=== PATIENT | male | born 1950 | race Caucasian/White ===

== ENCOUNTER 2018-01-15 13:31 | Day surgery (SDC) | payer OTHER ==
[2018-01-15 12:04] VITALS: BMI 31.3
[2018-01-15] MEDS ORDERED: PROPOFOL 20 ML ONE ×2 (14:41)
[2018-01-15] MEDS ORDERED: LIDOCAINE HCL/PF 2% SDV 5ML VIAL ONE (14:41)
[2018-01-15 15:12] VITALS: TEMP 98.4
[2018-01-15 17:13] VITALS: BP 152/82; PULSE 65
--- NOTE | 2018-01-17 14:46 | PATH ---
Surgical Pathology Report Patient Name: [facility]. Rec. #: [id number] /Age/Gender: 1950 (Age: 67) / M Account: [id number] Location: [facility]-ENDOSCOPY Taken: 01/15/2018 Received: 01/16/2018 Reported: 01/17/2018 Physicians: Bharat Aranda M.D. Specimen(s) Received BX MID SIGMOID POLYP Clinical History Positive cologuard Postoperative diagnosis: Mild diverticulosis, polyp Final Diagnosis MID SIGMOID COLON, POLYP, BIOPSY: HYPERPLASTIC POLYP. Electronically Signed Stephanie Lara M.D. Gross Description Received in formalin, labeled "BX mid sigmoid polyp" is a godinez, irregular portion of soft tissue measuring 0.3 cm. in greatest dimension. The specimen is submitted in toto in one cassette. MICHAEL/01/16/2018 elan/01/16/2018
== END 2018-01-15 16:05 | disposition home or self-care (01) ==
LOC: JASU-ENDO 13:31
PROVIDERS: ATTEND Internal Medicine Gastroenterology
PROC: 0DBN8ZX Excision of Sigmoid Colon, Via Natural or Artificial Opening Endoscopic, Diagnostic (ICD-10-PCS; principal; 2018-01-15 14:30)
DX: K63.5 Polyp of colon (principal); R19.5 Other fecal abnormalities; K57.30 Diverticulosis of large intestine without perforation or abscess without bleeding; K64.8 Other hemorrhoids; I10 Essential (primary) hypertension; I25.10 Atherosclerotic heart disease of native coronary artery without angina pectoris; Z95.2 Presence of prosthetic heart valve

== ENCOUNTER 2018-08-20 14:06 | Emergency (ER) | payer OTHER ==
--- NOTE | 2018-08-20 14:19 | PDOC ---
Rapid Medical Evaluation Time Seen by Provider: 08/20/18 14:14 Medical Evaluation: Allergies Allergy/AdvReac Type Severity Reaction Status Date / Time No Known Allergies Allergy Verified 02/11/15 11:19 08/20/18 14:14 I have performed a brief in-person evaluation of this patient. The patient presents with a chief complaint of: Atraumatic left elbow pain Pertinent physical exam findings: worsening elbow pain with pronation, suppination or wrist and flexion and extension of elbow. INR subtherapeutic - "1. something." started on Lovenox and warfarin increased. No ecchymosis present. I have ordered the following: xray, tylenol The patient will proceed to the ED for further evaluation. Discharge Disposition - Diagnosis Elbow pain, left - Referrals Referrals: Nikita Wright MD [Primary Care Provider] - - Patient Instructions - Post Discharge Activity
[2018-08-20 14:20] VITALS: BP 138/80; PULSE 64; TEMP 98.3; BMI 29.7
[2018-08-20] MEDS ORDERED: ACETAMINOPHEN 500 MG TABLET (FP) PO ONE (14:20)
--- NOTE | 2018-08-20 14:59 | PDOC ---
History of Present Illness - General Chief Complaint: Pain Stated Complaint: LT ARM SWELLING Time Seen by Provider: 08/20/18 14:14 - History of Present Illness Initial Comments: 08/20/18 14:56 67-year-old male with a past medical history significant for hypertension and dyslipidemia recently underwent a bladder surgery for removal of a polyp he had a cystoscopy done he is on a Lovenox Coumadin bridge presents for evaluation of atraumatic onset of left elbow pain. He states he was in bed the pavement pushoff his elbow and felt a pop. He points to the posterior aspect of the left elbow as the area of his discomfort pain is exacerbated with motion Past History - Past Medical History Allergies/Adverse Reactions: Allergies Allergy/AdvReac Type Severity Reaction Status Date / Time No Known Allergies Allergy Verified 08/20/18 14:16 Home Medications: Ambulatory Orders Metoprolol Succinate [Toprol Xl] 50 mg PO DAILY 09/30/14 Nifedipine [Nifedipine ER] 90 mg PO DAILY 09/30/14 Olmesartan Medoxomil [Benicar -] 40 mg PO HS 09/30/14 Warfarin Na [Coumadin -] 5 mg PO ASDIR 09/30/14 Warfarin Na [Coumadin -] 7 mg PO ASDIR 09/30/14 Cholecalciferol (Vitamin D3) [Vitamin D3] 2,000 unit PO DAILY 01/15/18 Enoxaparin [Lovenox -] 30 mg SQ ASDIR 01/15/18 Pravastatin Sodium 10 mg PO DAILY 01/15/18 Anemia: No Asthma: No Cancer: No Cardiac Disorders: Yes (HEART MURMUR) CVA: No COPD: No CHF: No Dementia: No Diabetes: No GI Disorders: No Disorders: No HTN: Yes Hypercholesterolemia: Yes Kidney Stones: Yes Liver Disease: No Seizures: No Thyroid Disease: No - Surgical History Cardiac Surgery: Yes (AVR TAA REPAIR 2009) - Immunization History Immunization Up to Date: Yes - Suicide/Smoking/Psychosocial Hx Smoking History: Never smoked Have you smoked in the past 12 months: No Information on smoking cessation initiated: No Hx Alcohol Use: No Drug/Substance Use Hx: No Substance Use Type: None Hx Substance Use Treatment: No Review of Systems - Review of Systems Musculoskeletal: Yes: Joint Pain *Physical Exam - Vital Signs Last Vital Signs Temp Pulse Resp BP Pulse Ox 98.3 F 64 18 138/80 100 08/20/18 14:16 08/20/18 14:16 08/20/18 14:16 08/20/18 14:16 08/20/18 14:16 - Physical Exam Comments: 08/20/18 14:57 Left elbow skin color and temperature are normal. Range of motion is from 20 of flexion to roughly 90 of flexion with discomfort past dose points. There is 20 extension lag. There is no tenderness about the medial or lateral epicondyles and olecranon process or distal biceps. The majority of the tenderness is about the posterior aspect of the elbow and the insertion of the triceps tendon and the distal triceps tendon no instability or gross sensorimotor deficits upper extremity compartments are soft and nontender he is neurovascularly intact. ED Treatment Course - Medications Given in the ED: ED Medications Discontinued Medications Generic Name Dose Route Start Last Admin Trade Name Freq PRN Reason Stop Dose Admin Acetaminophen 975 mg 08/20/18 14:20 08/20/18 14:37 Tylenol - PO 08/20/18 14:21 975 mg ONCE ONE Administration Medical Decision Making - Medical Decision Making 08/20/18 14:58 This appears to be a partial distal triceps tendon rupture sling for comfort, he was instructed to come out of strength for gentle range of motion wall at home and follow-up with orthopedics he does have a scheduled appointment tomorrow *DC/Admit/Observation/Transfer Diagnosis at time of Disposition: Elbow pain, left - Discharge Dispostion Disposition: HOME Condition at time of disposition: Stable Decision to Admit order: No - Referrals Referrals: Nikita Wright MD [Primary Care Provider] - Nikita Brooks MD [Staff Physician] - - Patient Instructions Additional Instructions: Sling for comfort. Remove multiple times a day for gentle range of motion of the elbow return to the emergency room should symptoms worsen Tylenol only for pain. Follow-up with orthopedics as scheduled. - Post Discharge Activity
== END 2018-08-20 15:06 | disposition home or self-care (01) ==
LOC: JERFT 14:06
DX: M25.522 Pain in left elbow (principal); R01.1 Cardiac murmur, unspecified; I10 Essential (primary) hypertension; E78.00 Pure hypercholesterolemia, unspecified; Z87.442 Personal history of urinary calculi; I51.9 Heart disease, unspecified; Z79.01 Long term (current) use of anticoagulants
CPT/HCPCS: 73070-TC-LT-FY; 99281-25

== ENCOUNTER 2020-11-28 13:21 | Emergency (ER) | payer OTHER ==
[2020-11-28 13:34] VITALS: BMI 30.2
[2020-11-28] MEDS ORDERED: BAMLANIVIMAB 700 MG in SODIUM CHLORIDE 250 ML IVPB ONE (14:45)
[2020-11-28 15:31] LABS: BASO % 0.4 % (0-2.0); EOS % 0.4 % (0-4.5); HEMATOCRIT 48.5 % (35.4-49); HEMOGLOBIN 16.4 GM/dL (11.7-16.9); LYMPH % 31.7 % (8-40); MCH 31.3 pg (25.7-33.7); MCHC 33.8 g/dl (32.0-35.9); MEAN CELL VOLUME 92.6 fl (80-96); MEAN PLT VOLUME 8.9 fl (7.5-11.1); MONO % 16.1 % (3.8-10.2); NEUT % 51.4 % (42.8-82.8); PLATELET COUNT 176 K/MM3 (134-434); RBC 5.23 M/mm3 (4.00-5.60); RDW 13.4 % (11.9-15.9); WHITE BLOOD COUNT 5.2 K/mm3 (4.0-10.0)
[2020-11-28 15:51] LABS: INR 1.59 (0.83-1.09); PROTHROMBIN TIME (PATIENT) 19.3 SEC (9.7-13.0)
[2020-11-28 16:05] LABS: CALCIUM 9.6 mg/dL (8.5-10.1)
[2020-11-28 16:06] LABS: ALBUMIN 4.4 g/dl (3.4-5.0); BLOOD UREA NITROGEN 18.4 mg/dL (7-18)
[2020-11-28 16:09] LABS: CREATININE 1.6 mg/dL (0.55-1.3)
[2020-11-28 16:10] LABS: TOT PROT 7.8 g/dl (6.4-8.2)
[2020-11-28 18:27] VITALS: BP 140/77; PULSE 66; TEMP 99.7
== END 2020-11-28 19:04 | disposition home or self-care (01) ==
LOC: MERGE 13:21 → JCOVINFU 13:21
DX: U07.1 COVID-19 (principal)
CPT/HCPCS: 36415; 80053; 85025; 85610; 99284-25; M0239; Q0239

== ENCOUNTER 2024-04-01 06:17 | Emergency (ER) | payer OTHER ==
[2024-04-01 06:26] VITALS: BP 150/85; PULSE 85; RESP 18; TEMP 98.4; BMI 29.4
[2024-04-01] MEDS ORDERED: LIDOCAINE 4% PATCH TP ONE (07:26)
[2024-04-01] MEDS: LIDOCAINE 5% TOPICAL PATCH TP ONE (07:59)
[2024-04-01] MEDS ORDERED: BUPIVACAINE HCL/PF 0.5% (5MG/ML) 10 ML VIAL ONE (09:08)
[2024-04-01] MEDS: BUPIVACAINE HCL/PF 0.5% (5MG/ML) 10 ML VIAL CAUD ONE (09:29)
[2024-04-01] MEDS ORDERED: LIDOCAINE PATCH REMOVAL MC SCH (22:00)
== END 2024-04-01 10:57 | disposition home or self-care (01) ==
LOC: JER 06:17
PROC: 0RSJXZZ Reposition Right Shoulder Joint, External Approach (ICD-10-PCS; principal; 2024-04-01)
DX: S43.014A Anterior dislocation of right humerus, initial encounter (principal); X50.1XXA Overexertion from prolonged static or awkward postures, initial encounter
CPT/HCPCS: 73030-TC-RT-FY; 99283-25